=== PATIENT | male | born 1950 | race Caucasian/White ===

== ENCOUNTER 2023-12-01 20:03 | Emergency (ER) | payer MEDICARE ==
[~2023-12-01] VITALS: Ht 180.3 cm; Wt 79.4 kg
[2023-12-01] MEDS ORDERED: ROSU10TA2 PO (20:25)
[2023-12-01] MEDS ORDERED: metoprolol PO (20:25)
[2023-12-01] MEDS ORDERED: CYCL10TA9 PO (21:33)
[2023-12-01] MEDS ORDERED: OXYC-128 PO (21:33)
[2023-12-01 22:16] VITALS: BP 140/80; TEMP 98.6; O2SAT 99
== END 2023-12-01 22:16 | disposition home or self-care (01) ==
LOC: ER 20:24
DX: S29.012A Strain of muscle and tendon of back wall of thorax, initial encounter (principal); S16.1XXA Strain of muscle, fascia and tendon at neck level, initial encounter; E78.5 Hyperlipidemia, unspecified; Z98.890 Other specified postprocedural states; Z79.899 Other long term (current) drug therapy; V89.2XXA Person injured in unspecified motor-vehicle accident, traffic, initial encounter; Y93.89 Activity, other specified; Y92.89 Other specified places as the place of occurrence of the external cause; Y99.8 Other external cause status
CPT/HCPCS: 71045; 72072; A4606; A4663